=== PATIENT | male | born 1995 | race Caucasian/White ===

== ENCOUNTER 2023-03-18 20:26 | Emergency (ER) | payer BC ==
[~2023-03-18] VITALS: Ht 182.9 cm; Wt 117.9 kg
[2023-03-18 20:38] VITALS: BP 152/88; PULSE 50; RESP 18; TEMP 97.6; O2SAT 100
[2023-03-18] MEDS ORDERED: WATER 20 ML ONE (21:04)
[2023-03-18] MEDS ORDERED: SOLU-MEDROL ONE (21:04)
[2023-03-18] MEDS: SOLU-MEDROL IM STA (21:06)
== END 2023-03-18 21:23 | disposition home or self-care (01) ==
LOC: ER 20:26
DX: L25.9 Unspecified contact dermatitis, unspecified cause (principal); R00.1 Bradycardia, unspecified; Z90.49 Acquired absence of other specified parts of digestive tract
CPT/HCPCS: 99284; 96372; J2930; A4216